=== PATIENT | female | born 1995 | race Hispanic/Latino ===

== ENCOUNTER 2019-04-28 00:08 | Day surgery (SDC) | payer OTHER ==
[2019-04-28] MEDS ORDERED: hydrALAZINE 20 MG/ML VIAL SLOW IVP PRN (00:50)
--- NOTE | 2019-04-28 00:52 | PDOC.FPROB ---
FMR OB H&P: HPI - History of Present Illness Chief Complaint: contractions Indentification: History of Present Illness: 23YO @ 40.1 WGA who presents for evaluation for painful contractions and possible LOF. Reports she began having regular contractions about 30 minutes apart around 14:00 yesterday and that over the course of the day and night they became more painful and up to 15 minutes apart so she decided to come in for an evaluation. Reports possible LOF that began yesterday as well with some light vaginal bleeding but no abnormal discharge. Endorses regular movement. No fever/chills, N/V/D, vision changes, chest pain, SOB or LE edema. Does endorse a mild headache. States her last cervical check was on , 04/26/19, with Dr. Self who said she was not dilated at all at that time. Primary Care Physician: Aramis FMR OB H&P: Current - Care : 2 Para: 1 Gestational age: 40.1 Due date: 04/27/19 Course/Complications: none FMR OB H&P: History - Past Medical History PMH: none - OB History OB History: first that has been uncomplicated - ENTEROSTOMAL NURSE History ENTEROSTOMAL NURSE History: none per patient - Surgical History Sx History: none - Social History Social History: No TAD. - Family History Family History: non-contributory FMR OB H&P: Medications - Current Allergies/Adverse Reactions: Allergies Allergy/AdvReac Type Severity Reaction Status Date / Time No Known Allergies Allergy Verified 04/28/19 17:38 FMR OB H&P: ROS - Review of Systems General: denies: fever/chills, weight/appetite/sleep changes Eyes: denies: vision changes, double vision ENT: denies: nasal congestion, rhinorrhea, sore throat Cardiovascular: denies: chest pain, edema Respiratory: denies: cough, shortness of breath Gastrointestinal: denies: nausea, vomiting, diarrhea, constipation Genitourinary (Female): reports: dysuria, hematuria, vaginal bleeding, contractions, vaginal pressure. denies: vaginal discharge Musculoskeletal: denies: decrease range of motion, arthritis/arthralgias Neurologic: reports: headache. denies: syncope Integumentary: denies: itching, rash Endocrine: denies: polydipsia, polyuria Psychological: denies: depression, anxiety FMR OB H&P: Vital Signs - Maternal Vital signs: BP: 132/87 HR: 82 RR: 18 Temp: 98.3F - Heart Tones Baseline: 140 Variability: moderate Acceleration: present Deceleration: absent Category: category 1 Excello contractions every: 4-10 minutes FMR OB H&P: Physical Exam - Physical Exam General: NAD, awake, alert and oriented HEENT: normocephalic and atraumatic, MMM, conjunctiva clear, grossly normal vision, grossly normal hearing Neck: supple, FROM Heart: RRR, normal S1/S2, no murmurs/rubs/gallops, pulses present, no edema General: CTAB, no respiratory distress, good air movement, no rales/rhonchi, no wheezing, no retractions Abdomen: gravid, non-tender, bowel sound present Musculoskeletal: normal gait and station, FROM in all four extremities Neurological: cranial nerves II through XII intact, no focal deficit Skin: no rash, good tugor, no jaundice Lymphatic: no unusual bruising or bleeding Psychiatric: intact recent and remote memory, good judgement and insight, normal mood and affect - Pelvic Exam Vulva: normal hair distribution, appropriate miky stage, no discharge, no blood SVE: Presentation: cephalic FMR OB H&P: A/P - Problem List (1) Post term over 40 weeks Status: Acute Code(s): O48.0 - POST-TERM Disposition: 23Yo @ 40.1 WGA who presented for painful contractions that began yesterday afternoon with possible LOF. Postterm , rule out labor & ROM: - SVE on admission with no obvious fluid leakage but amnisure swab collected to r/o ROM since patient is uncertain about LOF. - Anastasia some but not regularly or frequently ~ q 4-10 minute since arrival. FHTs reassuring with baseline in the 140s and moderate reactivity and accelerations noted. Dispo: Will continue external monitoring pending amnisure since no regular contractions noted and patient is a primip at only 1 cm. Discussion: Date/Time: 04/28/19 0051 This H&P was discussed with Dr. Andrews who agrees with the above documentation and plan. Addendum - Attending - Attending Attestation Date/Time: 04/30/19821 I personally evaluated the patient and discussed the management with Dr. Hobbs I agree with the History, Examination, Assessment and Plan documented above with any addition or exceptions noted below. vitals 132/87 82 18 98.3 amnisure test neg no evidence of labor home
[2019-04-28 00:56] VITALS: BMI 30.9
[2019-04-28 01:08] LABS: Amnisure Internal Control QC ACCEPTABLE (ACCEPTABLE); Amnisure Test No Membranes Rupture (No Rupture)
[2019-04-28] MEDS ORDERED: Morphine 4 MG/ML VIAL IM SCH (02:00)
[2019-04-28] MEDS ORDERED: Promethazine HCl 25 MG/ML VIAL IM SCH (02:00)
--- NOTE | 2019-04-28 03:05 | PDOC.BPN ---
- Brief Progress Note 23Yo @ 40.1 WGA who presented for painful contractions that began yesterday afternoon with possible LOF. Postterm , rule out labor & ROM: - SVE on admission with negative amnisure. - Still not isaias regularly. FHTs remain reassuring with baseline in the 140s and moderate reactivity and accelerations noted. Dispo: Will discharge home with labor precautions.
== END 2019-04-28 02:35 | disposition home or self-care (01) ==
LOC: L&D/OP 00:08
PROVIDERS: ATTEND Family Medicine
DX: O47.1 False labor at or after 37 completed weeks of gestation (principal); O48.0 Post-term pregnancy; Z3A.40 40 weeks gestation of pregnancy
CPT/HCPCS: 84112; J2270; J2550

== ENCOUNTER 2019-04-28 17:07 | Inpatient (IN) | payer MEDICAID, OTHER, SELFPAY ==
[~2019-04-28 17:07] MED LIST: Bupivacaine 0.25% 10 ML VIAL ONE
[2019-04-28] MEDS ORDERED: NS / Oxytocin 40 units/1000ml 1,000 ML IV PRN (17:30)
[2019-04-28] MEDS ORDERED: Ondansetron PF 4 MG/2 ML Vial IVP PRN ×2 (17:30→21:05)
[2019-04-28] MEDS ORDERED: Promethazine HCl 25 MG/ML VIAL IM PRN ×2 (17:30→21:05)
[2019-04-28] MEDS ORDERED: Acetaminophen 500 MG TAB PO PRN (17:30)
[2019-04-28] MEDS ORDERED: hydrALAZINE 20 MG/ML VIAL SLOW IVP PRN (17:30)
[2019-04-28] MEDS ORDERED: Lidocaine 1% (PF) 30 ML VIAL SC PRN (17:30)
[2019-04-28 17:49] VITALS: BMI 31.5
[2019-04-28 17:57] LABS: Hemoglobin 12.5 g/dL (12.0-16.0); Mean Corpuscular HGB CONC 33.2 g/dL (32.0-36.0); Mean Corpuscular Hemoglobin 28.3 pg (27.0-31.0); Mean Corpuscular Volume 85.3 fL (78.0-98.0); Mean Platelet Volume 9.5 fL (7.4-10.4); Platelet Count 236 thou/uL (130-400); RBC Distribution Width 13.9 % (11.5-14.5); Red Blood Cell (RBC) Count 4.42 mill/uL (4.20-5.40); White Blood Cell (WBC) Count 22.2 thou/uL (4.8-10.8)
[2019-04-28] MEDS ORDERED: Butorphanol Tartrate 1 MG/ML VIAL SLOW IVP PRN (18:04)
--- NOTE | 2019-04-28 18:12 | PDOC.FPROB ---
FMR OB H&P: Medications - Current Allergies/Adverse Reactions: Allergies Allergy/AdvReac Type Severity Reaction Status Date / Time No Known Allergies Allergy Verified 04/28/19 17:38 FMR OB H&P: Results - Labs Lab results: Laboratory Results - last 24 hr 04/28/19 17:46 WBC 22.2 H RBC 4.42 Hgb 12.5 Hct 37.7 MCV 85.3 MCH 28.3 MCHC 33.2 RDW 13.9 Plt Count 236 MPV 9.5 FMR OB H&P: A/P - Problem List (1) Term Current Visit: Yes Status: Acute Code(s): Z34.90 - ENCNTR FOR SUPRVSN OF NORMAL , UNSP, UNSP TRIMESTER Discussion: Date/Time: 04/28/191811 PCP: Aramis HPI: This is a 23 yo at 40.1 wks who comes in for evaluation of contractions. She states she is feeling contractions about 5 min apart. She did have a gush of fluids upon arriving to the hospital around 1730. She feels baby moving often. She denies vaginal bleeding. She has had an headache on and off. Denies SOB, abd pain, visual changes, or swelling. History: OB hx: G1 PMH: denies asthma, DM , HTN PSH: denies Meds: PNV All: NKDA Soc Hx: denies smoking, alcohol, drugs Fam Hx: denies downs, congenital defects Labs unavailable at this time REVIEW OF SYSTEMS: Gen: no fever, chills, or sweats Neuro: no numbness/tingling, no weakness, denies headache ENT: denies congestion Eyes: no visual changes Resp: denies cough, no production, no SOB, no wheeze Card: denies chest pain, no palpitations GI: denies nausea, vomiting, diarrhea : no dysuria, no hematuria Skin: no rash, no erythema Psych: denies hx anxiety/depression Vitals: T: 98.5 R: 18 BP: 138/88 P:80 at: 98% on RA PHYSICAL EXAMINATION: General: NAD, alert and oriented x3 HEENT: EOMI, normal sclera Neck: Supple. Full ROM. Heart/Cardiovascular System: RRR, Cap refill < 3 seconds, no rub, no murmur Lungs/Respiratory System: clear to auscultation bilaterally. No increased work of breathing. Room air. Abdomen/Gastro-Intestinal System: no abdominal tenderness, normal bowel sounds, Gravid Extremities: Warm extremities. No cyanosis or edema. Neuro: No gross deficits appreciated Psychiatry: Awake, Alert and cooperative with exam Skin: no lesions, no rashes Musculoskeletal: Full ROM A/P: This is a 23 yo at 40.1wks here for labor FHT: 150 baseline, mod variability, no decels, accels present [place]: cxns q5 minutes apart # Term in labor - SROM approximately 1730, amnisure was negative at 0100 this AM - SVE /-1 - GBS negative per PCP, will hold off on penicillin, PCP will forward labs - Considering epidural, wants to hold off for now - Plans to breast and bottle feed # Elevated BP w/o diagnosis of HTN - Initial pressures trending near 140/90, will check CMP, CBC, urine pr/cr ratio and monitor pressures closely. Patient is having a fair amount of pain with contractions.
[2019-04-28] MEDS: Lactated Ringer's 1,000 ML IV SCH (18:15)
[2019-04-28 18:34] LABS: Syphilis Antibody Nonreactive (Nonreactive); Syphilis Antibody Index 0.04 S/CO (<1.00 Non-Reactive)
[2019-04-28 18:35] LABS: HBSAg Index 0.14 S/CO (0-0.99); HIV (1/2) Antibody/Antigen Non-Reactive (NonReactive); HIV 1/2 INDEX 0.08 S/CO (<1.00); Hep B Surf Ag Non-Reactive S/CO (NonReactive)
[2019-04-28 18:48] LABS: ALT (SGPT) 7 U/L (8-55); AST (SGOT) 15 U/L (5-34); Albumin 2.9 g/dL (3.5-5.0); Alkaline Phosphatase 211 U/L (40-110); Anion Gap 15 mmol/L (10-20); BUN (Urea Nitrogen) 10 mg/dL (7.0-18.7); Bilirubin, Total 0.5 mg/dL (0.2-1.2); Calc. Creatinine Clearance 164 mL/min (70-130); Calcium 8.4 mg/dL (7.8-10.44); Carbon Dioxide 17 mmol/L (22-29); Chloride 102 mmol/L (98-107); Estimated GFR-MDRD Greater than 90; Globulin 3.8 g/dL (2.4-3.5); Glucose 110 mg/dL (70-105); Potassium 3.9 mmol/L (3.5-5.1); Protein, Total 6.7 g/dL (6.0-8.3); Sodium 130 mmol/L (136-145)
[2019-04-28] MEDS ORDERED: NS w/ Oxytocin 10 units 500 ML IV SCH (19:30)
[2019-04-28] MEDS ORDERED: Fentanyl 4 mcg/Bup 0.1% Cadd 100 ML ONE (20:01)
[2019-04-28] MEDS ORDERED: Fentanyl 100 MCG/2 ML VIAL ONE (20:14)
[2019-04-28] MEDS ORDERED: diphenhydrAMINE 50 MG/ML VIAL IVP PRN (21:05)
[2019-04-28] MEDS ORDERED: ePHEDrine/0.9% NaCl/PF SYRINGE 50 mg/10 ml SLOW IVP PRN (21:05)
[2019-04-28] MEDS ORDERED: Lactated Ringer's 500 ML IV PRN (21:05)
[2019-04-28] MEDS ORDERED: Naloxone HCl 0.4 mg/ml Vial IVP PRN ×2 (21:05)
[2019-04-28] MEDS ORDERED: Communication Order-Pharmacy FS SCH (21:15)
[2019-04-28] MEDS ORDERED: Fentanyl 4 mcg/Bupivacaine 0.1% Cassette 100 ML EPIDURAL SCH (21:15)
[2019-04-28 21:26] LABS: Bilirubin Negative (Negative); Blood, Urine 1+ (Negative); Clarity Extra Turbid (Clear); Glucose, Urine (Dipstick) Normal (Negative); Leukocyte 25 Leu/uL (Negative); Mucous/LPF Rare LPF (<2+); Nitrite 2+ (Negative); Protein, Urine (Dipstick) Greater than 600 mg/dL (Neg-Trace); Transitional Epithelial 0-3 HPF (None Seen); Urobilinogen Normal mg/dL (Less than 2)
[2019-04-28 21:34] LABS: Bacteria/HPF 3+ HPF (None Seen)
[2019-04-28 21:40] LABS: Creatinine, Urine 198.13 mg/dL (47-110)
[2019-04-28] MEDS ORDERED: Gentamicin Sulfate 320 MG in Sodium Chloride 0.9% 100 ML IVPB SCH (23:45)
[2019-04-28] MEDS: Acetaminophen 325 MG TAB PO PRN (23:57)
[2019-04-28] MEDS ORDERED: Ampicillin 2 GM in Sodium Chloride 0.9% 100 ML IVPB SCH (23:59)
[2019-04-29] MEDS: Acetaminophen 325 MG TAB PO PRN (03:59)
[2019-04-29] MEDS ORDERED: Fentanyl 4 mcg/Bup 0.1% Cadd 100 ML ONE (04:31)
[2019-04-29] MEDS ORDERED: Lidocaine 1% (PF) 30 ML VIAL ONE (04:59)
[2019-04-29] MEDS ORDERED: NS / Oxytocin 40 units/1000ml 1,000 ML ONE (04:59)
[2019-04-29] MEDS ORDERED: Ampicillin 2 GM in Sodium Chloride 0.9% 100 ML IVPB SCH (06:00)
[2019-04-29] MEDS ORDERED: Promethazine HCl 25 MG/ML VIAL IM PRN (07:29)
[2019-04-29] MEDS ORDERED: Ondansetron PF 4 MG/2 ML Vial IVP PRN (07:29)
[2019-04-29] MEDS ORDERED: hydrALAZINE 20 MG/ML VIAL SLOW IVP PRN (07:29)
[2019-04-29] MEDS ORDERED: Adacel (T-DAP) 0.5 ML SYRINGE IM ONE (07:29)
[2019-04-29] MEDS ORDERED: diphenhydrAMINE 25 MG CAP PO PRN (07:29)
[2019-04-29] MEDS ORDERED: Benzocaine-Menthol 82.5 ML CAN TOP PRN (07:29)
[2019-04-29] MEDS ORDERED: Preparation H Ointment 28 GM TUBE PR PRN (07:29)
[2019-04-29] MEDS ORDERED: Milk Of Magnesia 30 ML UDCUP PO PRN (07:29)
[2019-04-29] MEDS ORDERED: Bisacodyl 10 MG SUPP PR PRN (07:29)
[2019-04-29] MEDS ORDERED: Lanolin Ointment 7 GM TUBE TOP PRN (07:29)
[2019-04-29] MEDS ORDERED: NS / Oxytocin 40 units/1000ml 1,000 ML IV SCH (07:29)
[2019-04-29] MEDS ORDERED: HYDROcodone/Acetaminophen 5/325 mg Tablet PO PRN ×2 (07:29)
[2019-04-29] MEDS: Ibuprofen 800 MG TAB PO SCH ×2 (09:30→17:49)
[2019-04-29] MEDS: Ferrous Sulfate 325 MG TAB PO SCH ×2 (11:48→17:51)
[2019-04-29] MEDS: Prenatal Vitamin 1 TAB PO SCH (11:48)
[2019-04-29] MEDS: Docusate Calcium (SURFAK) 240 MG CAP PO SCH ×2 (11:48→21:14)
[2019-04-29] MEDS: Lactated Ringer's 1,000 ML IV SCH (11:50)
[2019-04-30] MEDS: Ibuprofen 800 MG TAB PO SCH ×4 (00:14→23:15)
[2019-04-30 05:44] LABS: Hemoglobin 8.5 g/dL (12.0-16.0); Mean Corpuscular HGB CONC 32.2 g/dL (32.0-36.0); Mean Corpuscular Hemoglobin 28.4 pg (27.0-31.0); Mean Corpuscular Volume 88.2 fL (78.0-98.0); Platelet Count 212 thou/uL (130-400); RBC Distribution Width 14.1 % (11.5-14.5); Red Blood Cell (RBC) Count 2.99 mill/uL (4.20-5.40); White Blood Cell (WBC) Count 26.7 thou/uL (4.8-10.8)
[2019-04-30] MEDS: Prenatal Vitamin 1 TAB PO SCH (09:14)
[2019-04-30] MEDS: Ferrous Sulfate 325 MG TAB PO SCH ×2 (09:15→15:35)
[2019-04-30] MEDS: Docusate Calcium (SURFAK) 240 MG CAP PO SCH ×2 (09:15→23:15)
[2019-05-01] MEDS: Ibuprofen 800 MG TAB PO SCH (06:35)
[2019-05-01 08:23] VITALS: BP 116/64; TEMP 98.4
[2019-05-01] MEDS: Prenatal Vitamin 1 TAB PO SCH (09:28)
[2019-05-01] MEDS: Ferrous Sulfate 325 MG TAB PO SCH (09:28)
[2019-05-01] MEDS: Docusate Calcium (SURFAK) 240 MG CAP PO SCH (09:29)
--- NOTE | 2019-05-03 05:24 | PQF ---
MARGOT DALE CUA, ROLAND R MD [id number] CLINICAL DOCUMENTATION CLARIFICATION FORM: POST DISCHARGE Addendum to original discharge summary date: ____ Late entry note date: __ DATE: 05/03/2019 ATTN:KERRI ALCALA MD Please exercise your independent, professional judgment in responding to the clarification form. Clinical indicators are provided on the bottom of this form for your review Please check appropriate box(s): [ ] Acute blood loss anemia [ ] Post-op anemia related to acute blood loss [ ] Chronic Anemia [ ] Other diagnosis [ ] Unable to determine In addition, please specify: Present on Admission (POA): [ ] Yes [ ] No [ ] Unable to determine For continuity of documentation, please document condition throughout progress notes and discharge summary. Thank You. CLINICAL INDICATORS - SIGNS / SYMPTOMS / LABS HGB 12.5 on 04/28 and 8.5 on 04/30 - Documented in Laboratory HCT 37.7 on 04/28 and 26.4 on 04/30 - Documented in Laboratory BP 96.51 on 04/29 and 106/56 on 04/30 - Documented in Vital Signs Estimated blood loss 310ml - Documented in L&D record in Notes Second degree laceration - Documented in L&D record in Notes RISK FACTORS Term 40.1 weeks - Documented in OB H&P on 04/28 by Fredi Johnston Spontaneous Vaginal Delivery Elevated BP without HTN - Documented in OB H&P on 04/28 by Fredi Johnston TREATMENTS: Ferrous Sulfate 325 mg - Medication Report (This form is maintained as a part of the permanent medical record) 2014 [employer]. All Rights Reserved [employer] Crystal Reports Pardeepform [email or web address] [email or web address] [not provided] MTDD
== END 2019-05-01 12:40 | disposition home or self-care (01) | DRG 807 ==
LOC: L&D/OP 17:07 → L&D 04-29 05:31 → 3SW 04-29 11:06
PROVIDERS: ADMIT Family Medicine; ATTEND Family Medicine
PROC: 10E0XZZ Delivery of Products of Conception, External Approach (ICD-10-PCS; principal; 2019-04-29)
PROC: 10H07YZ Insertion of Other Device into Products of Conception, Via Natural or Artificial Opening (ICD-10-PCS; 2019-04-29)
DX: O75.2 Pyrexia during labor, not elsewhere classified (principal); Z37.0 Single live birth; Z3A.40 40 weeks gestation of pregnancy; O70.1 Second degree perineal laceration during delivery; O69.1XX0 Labor and delivery complicated by cord around neck, with compression, not applicable or unspecified; O76 Abnormality in fetal heart rate and rhythm complicating labor and delivery
CPT/HCPCS: 36415; 51702; 80053; 81001; 82570; 84112; 84156; 85027; 86780; 86850; 86900; 86901; 87340; 87389; 88307; 96372; 99284; 99285; J0290; J0595; J1580; J2001; J2270; J2550; J2590; J3010; J3490; S0020